=== PATIENT | male | born 1960 | race Caucasian/White ===

== ENCOUNTER 2019-11-22 19:49 | Emergency (ER) | payer OTHER ==
[2019-11-22] MEDS ORDERED: CEFTRIAXONE 1 GM/D5W RTU 1 GM/50 ML RTUPB IV ONE (20:54)
[2019-11-22] MEDS ORDERED: NORMAL SALINE 1000 ML 1,000 ML IV ONE ×2 (20:54→23:11)
--- NOTE | 2019-11-22 20:57 | ER Document Report ---
ED Medical Screen (RME) - General Chief Complaint: Flu Symptoms Stated Complaint: TIRED,FEVER,POSSIBLE INFECTION,DIARRHEA Time Seen by Provider: 11/22/19 20:48 Notes: Patient is a 59-year-old male who presents emergency department with a chief complaint of dysuria and UTI symptoms. He was seen by [facility] and was referred here to the emergency department. Patient also states that he has a cough. He has a history of HIV and hepatitis C. Exam: Soft, nontender abdomen. I have greeted and performed a rapid initial assessment of this patient. A comprehensive ED assessment and evaluation of the patient, analysis of test results and completion of medical decision making process will be conducted by an additional ED providers. TRAVEL OUTSIDE OF THE [place] IN LAST 30 DAYS: No - Related Data Allergies/Adverse Reactions: No Known Allergies Allergy (Unverified 11/22/19 20:45) Past Medical History Past Surgical History: Reports: Hx Testicular Surgery - rt testical Physical Exam - Vital signs Vitals: Temp Pulse Resp BP Pulse Ox 98.1 F 113 H 24 H 133/86 H 97 11/22/19 20:00 11/22/19 20:00 11/22/19 20:00 11/22/19 20:00 11/22/19 20:00 Course - Vital Signs Vital signs: Temp Pulse Resp BP Pulse Ox 98.1 F 113 H 24 H 133/86 H 97 11/22/19 20:00 11/22/19 20:00 11/22/19 20:00 11/22/19 20:00 11/22/19 20:00
[2019-11-22 21:58] LABS: ABSOLUTE LYMPHOCYTES (AUTO) 0.7 10^3/uL (0.5-4.7); ABSOLUTE MONOCYTES (AUTO) 1.3 10^3/uL (0.1-1.4); ABSOLUTE NEUT (AUTO) 5.3 10^3/uL (1.7-8.2); BASOPHILS % (AUTO) 0.2 % (0-2); HEMOGLOBIN 12.4 g/dL (13.5-17.0); LYMPHOCYTES % (AUTO) 9.2 % (13-45); MEAN CORPUSCULAR HEMOGLOBIN 31.7 pg (27.0-33.4); MEAN CORPUSCULAR HGB CONC 33.6 g/dL (32.0-36.0); MEAN CORPUSCULAR VOLUME 94 fl (80-97); MONOCYTES % (AUTO) 18.4 % (3-13); PLATELET COUNT 186 10^3/uL (150-450); RED BLOOD COUNT 3.92 10^6/uL (4.35-5.55); RED CELL DISTRIBUTION WIDTH 14.3 % (11.5-14.0); SEGMENTED NEUTROPHILS % (AUTO) 72.2 % (42-78); TOTAL CELLS COUNTED % (AUTO) 100 %; WHITE BLOOD COUNT 7.3 10^3/uL (4.0-10.5)
[2019-11-22 22:01] LABS: APPEARANCE,URINE CLOUDY; BILIRUBIN,URINE NEGATIVE (NEGATIVE); COLOR,URINE AMBER; GLUCOSE, URINE NEGATIVE (NEGATIVE); KETONES,URINE NEGATIVE (NEGATIVE); PROTEIN,URINE >=500 mg/dL (NEGATIVE); URINE SPECIFIC GRAVITY 1.017; UROBILINOGEN,URINE NEGATIVE mg/dL (<2.0)
[2019-11-22 22:13] LABS: ALBUMIN 3.6 g/dL (3.5-5.0); ALKALINE PHOSPHATASE 80 U/L (38-126); ANION GAP 12 (5-19); ASPARTATE AMINO TRANSFERASE 19 U/L (17-59); BILIRUBIN,DIRECT 0.1 mg/dL (0.0-0.4); BILIRUBIN,TOTAL 0.7 mg/dL (0.2-1.3); BLOOD UREA NITROGEN 32 mg/dL (7-20); CARBON DIOXIDE 25 mmol/L (22-30); CHLORIDE 94 mmol/L (98-107); GLUCOSE 122 mg/dL (75-110); POTASSIUM 4.1 mmol/L (3.6-5.0); TOTAL PROTEIN 6.6 g/dL (6.3-8.2)
--- NOTE | 2019-11-22 23:18 | ER Document Report ---
ED General - General Chief Complaint: Flu Symptoms Stated Complaint: TIRED,FEVER,POSSIBLE INFECTION,DIARRHEA Time Seen by Provider: 11/22/19 20:48 TRAVEL OUTSIDE OF THE [place] IN LAST 30 DAYS: No - HPI Notes: Patient is a 59-year-old male with a history of HIV, end-stage renal disease, status post renal transplant with a hepatitis C positive kidney, who presents to the emergency department for evaluation. 3 days ago he started feeling very fatigued. He had some shaking chills. He took his temperature it was found to be 99.9. He has had some cough and diarrhea. Yesterday he noticed some dysuria as well as what he believed to be blood in his urine. Otherwise he states he is been taking his medications as prescribed. He really has not had much of an appetite. He has had some nausea but no emesis. Last food intake was about 24 hours ago. - Related Data Allergies/Adverse Reactions: No Known Allergies Allergy (Unverified 11/22/19 20:45) Home Medications: List reviewed, please see notes Past Medical History - General Information source: Patient - Social History Smoking Status: Never Smoker Family History: Reviewed & Not Pertinent Patient has suicidal ideation: No Patient has homicidal ideation: No - Past Medical History Cardiac Medical History: Reports: Hx Hypertension Infectious Medical History: Reports: Hx Hepatitis - Received donor kidney from hepatitis C positive patient, Hx HIV Past Surgical History: Reports: Hx Kidney (Renal Surgery) - Renal transplant with hepatitis C positive donor, Hx Testicular Surgery - rt testical Review of Systems - Review of Systems Constitutional: See HPI Respiratory: See HPI Gastrointestinal: See HPI Genitourinary: See HPI -: Yes All other systems reviewed and negative Physical Exam - Vital signs Vitals: Temp Pulse Resp BP Pulse Ox 98.1 F 113 H 24 H 133/86 H 97 11/22/19 20:00 11/22/19 20:00 11/22/19 20:00 11/22/19 20:00 11/22/19 20:00 - Notes Notes: Vital signs reviewed, please refer to chart. Head is normocephalic, atraumatic. Pupils equal round, reactive to light. Neck is supple without meningismus. Heart is regular rate and rhythm. Lungs are clear to auscultation bilaterally. Abdomen is soft, nontender, normoactive bowel sounds throughout. Extremities without cyanosis, clubbing. Posterior calves are nontender. Peripheral pulses are equal. Skin is warm and dry. Patient is awake, alert, neurological exam is nonfocal. Course - Re-evaluation Re-evalutation: 11/22/19 23:17 Patient presents to the emergency department for evaluation. He is significantly immunocompromised given his HIV and transplant status. He had blood cultures, blood work, urinalysis, urine culture ordered. Urinalysis shows signs of significant flexion. He is given IV Rocephin. I did order additional fluids, regional sales representative, as he did still seem mildly tachycardic upon my initial evaluation. Chest x-ray is ordered as well. Will contact the transplant coordinators at [place] in regards to findings and ultimate disposition [facility]. Currently patient is stable, we will continue to monitor. 11/23/19 00:31 Patient was given 2 L of IV fluids, and on evaluation his heart rate is up. His respiratory rate is increased slightly to 26 through 28. His temperature was 99.9 on recheck. I will treat with Tylenol. I spoke with the [place] transfer center in regards to this patient. It seems his creatinine on November 05 was 1.3. This does represent an increase. I will give him further IV fluids. Awaiting conversation with the renal transplant team. 11/23/19 00:[address] Liz Arce, renal transplant team. I got back in to evaluate the patient and his temperature had been elevated, mild increase in respiratory rate. I did add an influenza swab, as no results were sent from the [facility]. Patient has elevated heart rate, mildly elevated temperature, and an elevation in his creatinine, which was 1.3 on November 05. He does thereby meet sepsis criteria. This is a largely immunocompromised patient. As a result, Dr. Arce accepted the patient to [place] for further treatment and evaluation. Patient was notified and is currently medically stable. Awaiting bed assignment or transfer to the ED. 11/23/19 01:45 I was notified by nursing that patient had gotten up to go to the bathroom. Upon returning to the bathroom he was more tachypneic, heart rate 1 18-1 30. I went back in to evaluate the patient. He denied any difficulty breathing despite his mildly elevated respiratory rate. He did not show any other signs of increased work of breathing. I had received a bed assignment, but there was some concern that the patient would need to be evaluated more quickly at [place]. He is still accepted by Dr. Liz Arce, but will be transported directly to the emergency department for evaluation. Patient was notified of this change. 11/23/19 03:19 I have been notified that we do not have an ALS squad available to transport the patient to [place] until 7 AM. I ordered the regular medications that we have here available here in this facility to be administered to the patient. His heart r ate is currently 101, blood pressure 118/79. We will continue to monitor. - Vital Signs Vital signs: Temp Pulse Resp BP Pulse Ox 99.5 F 113 H 34 H 127/89 H 92 11/22/19 23:37 11/22/19 20:00 11/23/19 02:02 11/23/19 02:02 11/23/19 02:02 - Laboratory Result Diagrams: 11/22/19 21:33 11/22/19 21:33 Laboratory results interpreted by me: 11/22/19 11/22/19 11/22/19 21:10 21:33 21:33 RBC 3.92 L Hgb 12.4 L Hct 37.0 L RDW 14.3 H Lymph % (Auto) 9.2 L [place] % (Auto) 18.4 H Sodium 131.3 L Chloride 94 L BUN 32 H Creatinine 1.78 H Est GFR ( Amer) 47 L Est GFR (MDRD) Non-Af 39 L Glucose 122 H Urine Protein >=500 H Urine Blood LARGE H Leukocyte Esterase Rfl LARGE H Critical Care Note - Critical Care Note Total time excluding time spent on procedures (mins): 30 Discharge - Discharge Clinical Impression: Acute kidney injury Sepsis Qualifiers: Sepsis type: sepsis due to unspecified organism Sepsis acute organ dysfunction status: with acute organ dysfunction Severe sepsis acute organ dysfunction type: acute renal failure Severe sepsis shock status: without septic shock Urinary tract infection Qualifiers: Urinary tract infection type: site unspecified Hematuria presence: with hematuria Qualified Code(s): N39.0 - Urinary tract infection, site not specified Condition: Stable Disposition: [place]
--- NOTE | 2019-11-22 23:48 | RADIOLOGY REPORT (SQ) ---
EXAM DESCRIPTION: XR CHEST 2 VIEWS COMPLETED DATE/TME: 11/22/2019 23:12 CLINICAL HISTORY: 59 years Male cough COMPARISON: None. FINDINGS: The cardiomediastinal silhouette appears unremarkable. No consolidating infiltrates or pleural effusions. No pneumothorax. IMPRESSION: Small amount of atelectasis in the lung bases No acute abnormality is identified.
[2019-11-23] MEDS ORDERED: NORMAL SALINE 1000 ML 1,000 ML IV ONE (00:33)
[2019-11-23] MEDS ORDERED: ACETAMINOPHEN 325 MG TABLET PO ONE (00:33)
[2019-11-23 02:16] LABS: A TYPE INFLUENZA AG NEGATIVE (NEGATIVE); B INFLUENZA AG NEGATIVE (NEGATIVE)
[2019-11-23] MEDS ORDERED: AMLODIPINE BESYLATE 10 MG TABLET PO ONE (03:16)
[2019-11-23] MEDS ORDERED: CITALOPRAM HYDROBROMIDE 20 MG TABLET PO ONE (03:16)
[2019-11-23] MEDS ORDERED: PREDNISONE 5 MG TABLET PO ONE (03:17)
[2019-11-23] MEDS ORDERED: LAMIVUDINE 150 MG TABLET PO ONE (03:17)
[2019-11-23] MEDS ORDERED: MYCOPHENOLATE MOFETIL 250 MG CAPSULE PO ONE (03:18)
[2019-11-23 03:55] LABS: C DIFFICILE GDH POSITIVE (NEGATIVE)
[2019-11-23] MEDS ORDERED: MYCOPHENOLATE MOFETIL 250 MG CAPSULE ONE (04:06)
[2019-11-23 08:13] VITALS: BP 123/83
--- NOTE | 2019-11-23 08:18 | ER Document Report ---
Doctor's Note Notes: 11/23/19 08:17 Patient tested positive for C. difficile. He states he has had diarrhea for a long time and recently it became more explosive. He has had C. difficile in the past. At this time he feels well. Vital signs are stable. Transport is here to take him to [place]. The nurses called [facility] to inform them of the C. difficile positive testing so they can take appropriate contact precautions.
== END 2019-11-23 08:50 | disposition short-term general hospital (02) ==
LOC: ER 19:49
DX: N17.9 Acute kidney failure, unspecified (principal); R65.20 Severe sepsis without septic shock; N39.0 Urinary tract infection, site not specified; A04.72 Enterocolitis due to Clostridium difficile, not specified as recurrent; B20 Human immunodeficiency virus [HIV] disease; R50.9 Fever, unspecified; I12.0 Hypertensive chronic kidney disease with stage 5 chronic kidney disease or end stage renal disease; N18.6 End stage renal disease; Z94.0 Kidney transplant status; Z86.19 Personal history of other infectious and parasitic diseases
CPT/HCPCS: 99285; 96361; 96365; 36415; 87040; 87086; 83605; 83735; 85025; 87077; 87088; 80053; 81001; 87186; 87493 ×2; 87804; 87324; 87449; 87150 ×26; 71046; J7512; J3490; J7030 ×2; J7517; J0696